=== PATIENT | female | born 1995 | race Caucasian/White ===

== ENCOUNTER 2017-08-14 11:56 | Emergency (ER) | payer OTHER ==
[2017-08-14 12:02] VITALS: BP 135/87; BMI 33.3
[2017-08-14 13:46] LABS: BASOPHILS % (AUTO) 0.7 % (0.2-1.0); EOSINOPHILS # (AUTO) 0.1 x10^3/uL (0.0-0.2); EOSINOPHILS % (AUTO) 0.9 % (0.9-2.9); HEMATOCRIT 36.2 % (36.0-47.0); HEMOGLOBIN 11.9 g/dL (12.0-16.0); LYMPHOCYTES # (AUTO) 2.9 X10^3/uL (1.3-2.9); LYMPHOCYTES % (AUTO) 42.9 % (21.0-51.0); MEAN CORPUSCULAR HEMOGLOBIN 27.5 pg (27.0-34.0); MEAN CORPUSCULAR HGB CONC 32.9 g/dL (33.0-35.0); MEAN CORPUSCULAR VOLUME 83.6 fL (80.0-100.0); MEAN PLATELET VOLUME 7.2 fL (7.4-11.0); MONOCYTES # (AUTO) 0.5 x10^3/uL (0.3-0.8); MONOCYTES % (AUTO) 6.7 % (0.0-13.0); NEUTROPHILS # (AUTO) 3.3 x10^3/uL (2.2-4.8); NEUTROPHILS % (AUTO) 48.8 % (42.0-75.0); PLATELET COUNT 371 X10^3/uL (150.0-450.0); RED BLOOD COUNT 4.33 X10^6/uL (3.5-5.4); RED CELL DISTRIBUTION WIDTH 15.3 % (11.6-16.5); WHITE BLOOD COUNT 6.8 X10^3/uL (3.6-10.0)
[2017-08-14 13:58] LABS: BILIRUBIN,URINE NEGATIVE (NEGATIVE); BLOOD/HEMOGLOBIN,URINE 1+ (NEGATIVE); GLUCOSE, URINE NEGATIVE (NEGATIVE); KETONES,URINE NEGATIVE (NEGATIVE); LEUKOCYTE ESTERASE ,URINE 2+ (NEGATIVE); NITRITES,URINE NEGATIVE (NEGATIVE); PROTEIN,URINE NEGATIVE (NEGATIVE); UROBILINOGEN,URINE NORMAL (NORMAL)
[2017-08-14 14:00] LABS: ALANINE AMINOTRANSFERASE 32 Units/L (12-78); ALBUMIN 3.8 g/dL (3.4-5.0); ALKALINE PHOSPHATASE 94 Units/L (46-116); AMYLASE 36 Units/L (25-115); ASPARTATE AMINO TRANSFERASE 15 Units/L (15-37); BLOOD UREA NITROGEN 12 mg/dL (7-18); CALCIUM 8.7 mg/dL (8.5-10.1); CARBON DIOXIDE 24.2 mmol/L (21-32); CHLORIDE 106 mmol/L (98-107); LIPASE 99 Units/L (73-393); SERUM PREGNANCY TEST, QUAL NEGATIVE <10 mIU/mL; SODIUM 141 mmol/L (136-145); TOTAL PROTEIN 7.8 g/dL (6.4-8.2); eGFR BLACK RACES > 60 (>60); eGFR NON BLACK RACES > 60 (>60)
[2017-08-14 14:05] LABS: APPEARANCE,URINE HAZY (CLEAR); BACTERIA,URINE TRACE /HPF (NEGATIVE); COLOR,URINE YELLOW (YELLOW); SQUAMOUS EPITHELIAL CELL,UR MODERATE /HPF (NEGATIVE)
--- NOTE | 2017-08-14 14:27 | RAD ---
Examination: Abdomen with PA chest History: Lower quadrant pain, recent obstetric delivery Findings: PA upright chest demonstrates normal heart size with clear lungs and pleural spaces. In the abdomen, supine and erect views demonstrate mild gaseous distention of the proximal transverse colon . No evidence for pneumatosis, free air, ascites or pathologic calcification. Impression: No acute or significant chest/abdomen abnormality demonstrated. Reported By:
--- NOTE | 2017-08-14 14:33 | ED.ABDFE ---
HPI - Time seen Time seen: 13:30 - PCP Primary Care Physician: ASHWIN - HPI Comment HPI Comment: PAIN ASSOCIATED WITH NAUSEA. GETTING WORSE. - Complaint Chief Complaint Doctors Comments: LLQ ABDOMINAL PAIN TIMES 3 DAYS WITH NAUSEA. Chief Complaint:: PATIENT STATED FOR THE LAST 3 DAYS ABD. PAIN ON LEFT LOWER QUAD PAIN. WHEN IT GOES AWAY IT ONLY LAST ABOUT 30 MINS THEN COMES RIGHT BACK ON. SHE STATED SHE HAS TRIED OVER THE COUNTER MEDICINE AND IT HAS NOT HELPED. - Nurses notes reviewed Nurses Notes Review: Yes - Source History Provided: Patient - Mode of arrival Mode of Arrival: Ambulatory - Timing Onset of Chief Complaint: 08/11/17 Came on: Suddenly - Duration Duration: Constant Duration: Days - Location Location: LLQ - Severity Severity: Moderate - Quality Quality: Sharp - Context Onset: Suddenly History of: None - Modifying Worsening Factors: Nothing Improving Factors: Nothing - Associated signs and symptoms Associated Signs and Symptoms: Nausea PMH - PMH Past Medical History: No Past Surgical History: No - Family History History of Family Medical Conditions: Yes - Social History Does patient currently use any type of tobacco product: No Have you used tobacco products in the last 12 months: No Type of Tobacco Use: None Does any household member use tobacco: No Alcohol Use: None Do you use any recreational Drugs:: No Lives With: Family Lives Where: Home - infectious screening In the last 2 months have you had wt loss of >10#?: NO Have you had fever, night sweats or hemotysis?: No Have you traveled outside the country in the last 6 months?: No Isolation: Standard ROS - Review of Systems Constitutional: No Symptoms Reported Eyes: No Symptoms Reported ENTM: No Symptoms Reported Respiratoy: No Symptoms Reported Cardiovascular: No Symptoms Reported Gastrointestinal/Abdominal: Abdominal Pain, Nausea Genitourinary: No Symptoms Reported Neurological: No Symptoms Reported Musculoskeletal: No Symptoms Reported Integumentary: No Symptoms Reported Hematologic/Lymphatic: No Symptoms Reported Endocrine: No Symptoms Reported All Other Systems: Reviewed and Negative PE - Vital Signs Vitals: Temperature 97.9 F Pulse Rate 85 Respiratory Rate 20 Blood Pressure 135/87 O2 Sat by Pulse Oximetry 98 - General Limitations: No Limitations General Appearance: Alert - Head Head Exam: Normal Inspection - Eyes Eye exam: Normal Appearance - ENT ENT Exam: Normal External Ear Exam - Neck Neck Exam: Trachea Midline - Chest Chest Inspection: Symmetric Chest Wall Rise - Respiratory Respiratory Exam: Normal Lung Sounds Bilat Respiratory Exam: Bilateral Clear to Auscultation - Cardiovascular Cardiovascular Exam: Regular Rate, Normal Rhythm, Normal Heart Sounds - Abdominal Exam Abdominal Exam: Normal Bowel Sounds, Soft, Tenderness Abdominal Tenderness: Diffuse, Moderate - Rectal Rectal Exam: Deferred - Back Back Exam: Normal Inspection - Extremeties Extremities Exam: Normal Inspection - External Exam: Female: Deferred : Speculum Exam (Female): Deferred : Bimanual Exam (female): Deferred - Neurologic Neurological Exam: Alert, Oriented X3 - Psychiatric Psychiatric Exam: Normal Affect, Normal Mood - Skin Skin Exam: Warm, Dry MDM - Differential Diagnosis Differential Diagnosis- Considerations may include:: Cholcystitis, Cholelethiasis, Constipation, Diverticular disease, Esophagitis, Gastritus/PUD, Gastroenteritis, Pancreatitis, Urinary tract infection, Urolithiasis Course - Treatment Treatment: SEE ORDERS - Education/Counseling Education/Counseling: Patient ROR - Labs Reviewed Laboratory Results Reviewed?: Yes Result Diagrams: 08/14/17 13:40 08/14/17 13:40 Laboratory: WBC 6.8 X10^3/uL (3.6-10.0) 08/14/17 13:40 RBC 4.33 X10^6/uL (3.5-5.4) 08/14/17 13:40 Hgb 11.9 g/dL (12.0-16.0) L 08/14/17 13:40 Hct 36.2 % (36.0-47.0) 08/14/17 13:40 MCV 83.6 fL (80.0-100.0) 08/14/17 13:40 MCH 27.5 pg (27.0-34.0) 08/14/17 13:40 MCHC 32.9 g/dL (33.0-35.0) L 08/14/17 13:40 RDW 15.3 % (11.6-16.5) 08/14/17 13:40 Plt Count 371 X10^3/uL (150.0-450.0) 08/14/17 13:40 MPV 7.2 fL (7.4-11.0) L 08/14/17 13:40 Neut % 48.8 % (42.0-75.0) 08/14/17 13:40 Lymph % 42.9 % (21.0-51.0) 08/14/17 13:40 [place] % 6.7 % (0.0-13.0) 08/14/17 13:40 Eos % 0.9 % (0.9-2.9) 08/14/17 13:40 Baso % 0.7 % (0.2-1.0) 08/14/17 13:40 Neut # 3.3 x10^3/uL (2.2-4.8) 08/14/17 13:40 Lymph # 2.9 X10^3/uL (1.3-2.9) 08/14/17 13:40 [place] # 0.5 x10^3/uL (0.3-0.8) 08/14/17 13:40 Eos # 0.1 x10^3/uL (0.0-0.2) 08/14/17 13:40 Baso # 0.0 X10^3/uL (0.0-0.1) 08/14/17 13:40 Absolute Nucleated RBC 0.0 /100WBC 08/14/17 13:40 Sodium 141 mmol/L (136-145) 08/14/17 13:40 Corrected Sodium TNP 08/14/17 13:40 Potassium 4.1 mmol/L (3.5-5.1) 08/14/17 13:40 Chloride 106 mmol/L (98-107) 08/14/17 13:40 Carbon Dioxide 24.2 mmol/L (21-32) 08/14/17 13:40 BUN 12 mg/dL (7-18) 08/14/17 13:40 Creatinine 0.90 mg/dL (0.55-1.02) 08/14/17 13:40 Est GFR (MDRD) Af Amer > 60 (>60) 08/14/17 13:40 Est GFR (MDRD) Non-Af > 60 (>60) 08/14/17 13:40 Glucose 84 mg/dL (65-99) 08/14/17 13:40 Calcium 8.7 mg/dL (8.5-10.1) 08/14/17 13:40 Corrected Calcium TNP 08/14/17 13:40 Total Bilirubin 0.10 mg/dL (0.2-1.0) L 08/14/17 13:40 AST 15 Units/L (15-37) 08/14/17 13:40 ALT 32 Units/L (12-78) 08/14/17 13:40 Alkaline Phosphatase 94 Units/L (46-116) 08/14/17 13:40 Total Protein 7.8 g/dL (6.4-8.2) 08/14/17 13:40 Albumin 3.8 g/dL (3.4-5.0) 08/14/17 13:40 Globulin 4.0 g/dL (2.5-4.5) 08/14/17 13:40 Albumin/Globulin Ratio 1.0 Ratio (1.1-2.1) L 08/14/17 13:40 Amylase 36 Units/L (25-115) 08/14/17 13:40 Lipase 99 Units/L (73-393) 08/14/17 13:40 HCG, Qual Negative <10 mIU/mL 08/14/17 13:40 Specimen Type Clean catch urine 08/14/17 13:46 Urine Color Yellow (YELLOW) 08/14/17 13:46 Urine Appearance Hazy (CLEAR) 08/14/17 13:46 Urine pH 5.0 (5.0 - 8.0) 08/14/17 13:46 Ur Specific [place] 1.020 (1.000-1.030) 08/14/17 13:46 Urine Protein Negative (NEGATIVE) 08/14/17 13:46 Urine Glucose (UA) Negative (NEGATIVE) 08/14/17 13:46 Urine Ketones Negative (NEGATIVE) 08/14/17 13:46 Urine Occult Blood 1+ (NEGATIVE) 08/14/17 13:46 Urine Nitrite Negative (NEGATIVE) 08/14/17 13:46 Urine Bilirubin Negative (NEGATIVE) 08/14/17 13:46 Urine Urobilinogen Normal (NORMAL) 08/14/17 13:46 Ur Leukocyte Esterase 2+ (NEGATIVE) 08/14/17 13:46 Urine RBC 3-5 /HPF (NEGATIVE) 08/14/17 13:46 Urine WBC 5-7 /HPF (NEGATIVE) 08/14/17 13:46 Ur Squamous Epith Cells Moderate /HPF (NEGATIVE) 08/14/17 13:46 Urine Bacteria Trace /HPF (NEGATIVE) 08/14/17 13:46 Ur Culture Indicated? No/not indicated 08/14/17 13:46 - XRAY XRAY Interpreted by: Radiologist XRAY Findings: REPORT DISCUSS WITH PATIENT. - Diagnosis Discharge Problem: Abdominal pain Qualifiers: Abdominal location: generalized Qualified Code(s): R10.84 - Generalized abdominal pain UTI (urinary tract infection) Qualifiers: Urinary tract infection type: urethritis Qualified Code(s): N34.2 - Other urethritis - Discharge Plan Disposition: HOME, SELF-CARE Condition: Stable Prescriptions: Doxycycline Monohydrate 100 mg PO BID #20 tablet - Follow ups/Referrals Follow ups/Referrals: NFD,None [Primary Care Provider] - 3 days - Instructions Instructions: Urinary Tract Infection, Adult, [id number], Abdominal Pain, Adult, [id number] Additional Instructions: RETURN TO ED IF WORSE.
== END 2017-08-14 14:46 | disposition home or self-care (01) ==
LOC: ER 12:06
DX: R10.84 Generalized abdominal pain (principal); N34.2 Other urethritis
CPT/HCPCS: 36415; 74022; 80053; 81001; 82150; 83690; 84703; 85025; 99282